=== PATIENT | male | born 1955 | race African-American/Black ===

== ENCOUNTER 2017-01-30 21:53 | Emergency (ER) | payer MEDICAID ==
[~2017-01-30] VITALS: Ht 172.7 cm; Wt 74.0 kg
[~2017-01-30 21:53] MED LIST: AMLO2.5T45 PO; ASPI-1159 PO; ATOR10TA PO; LISI10TA5 PO
[2017-01-30 22:06] VITALS: BP 150/93
== END 2017-01-31 04:05 | disposition home or self-care (01) ==
LOC: ER 21:53
DX: J40 Bronchitis, not specified as acute or chronic (principal); R06.02 Shortness of breath; I10 Essential (primary) hypertension; Z88.0 Allergy status to penicillin; Z79.82 Long term (current) use of aspirin; Z95.5 Presence of coronary angioplasty implant and graft
CPT/HCPCS: 71010; 99283

== ENCOUNTER 2022-05-20 00:10 | Emergency (ER) | payer MEDICARE, MEDICAID ==
[~2022-05-20] VITALS: Ht 172.7 cm; Wt 70.0 kg
[~2022-05-20 00:10] MED LIST changes: -ASPI-1159 PO; +ASPI-1497 PO; +LISI10TA26 PO; -LISI10TA5 PO
[2022-05-20] MEDS ORDERED: DIPHENHYDRAMINE 25MG CAPSULE PO ONE (00:30)
[2022-05-20] MEDS ORDERED: KETOROLAC 60MG/2ML VIAL IM ONE (00:30)
[2022-05-20] MEDS ORDERED: PROCHLORPERAZINE MALEATE 10MG TABLET PO ONE (00:30)
[2022-05-20] MEDS ORDERED: FLUT9.9S BOTHNSTRLS (00:31)
[2022-05-20] MEDS ORDERED: IBUP-2029 MT (00:31)
[2022-05-20] MEDS ORDERED: PSEU120T56 MT (00:31)
[2022-05-20 01:26] VITALS: BP 142/82
== END 2022-05-20 01:53 | disposition home or self-care (01) ==
LOC: ER 00:10
DX: G44.009 Cluster headache syndrome, unspecified, not intractable (principal); R09.81 Nasal congestion; I10 Essential (primary) hypertension; Z88.0 Allergy status to penicillin
CPT/HCPCS: 96372; 99283; J1885; Q0163; Q0164